=== PATIENT | female | born 1980 | race Caucasian/White ===

== ENCOUNTER 2022-09-14 00:23 | Inpatient (IN) | payer BC, OTHER ==
[~2022-09-14] VITALS: Ht 160 cm; Wt 70.3 kg
--- NOTE | 2022-09-14 00:25 | NUR ---
Pt is noted in bed alert, responsive as she is brought in by family due to S/P Fall with Right Arm pain after a Seizure hours ago at home . Pt care continue as awaits MD orders.
[2022-09-14] MEDS ORDERED: ONDANSETRON 4 MG/2 ML VIAL IV ONE (01:00)
[2022-09-14] MEDS ORDERED: MORPHINE SULFATE 2 MG/1 ML DISP.SYRIN IV ONE (01:00)
[2022-09-14] MEDS ORDERED: IV NORMAL SALINE 1000 ML BAG IV ONE (01:00)
--- NOTE | 2022-09-14 01:09 | NUR ---
Pt care continue as DR. MÁRQUEZ spoke with DR. SHETH and DR. SINGH as Pt will be admitted.
[2022-09-14] MEDS ORDERED: ACETAMINOPHEN 325 MG TABLET PO PRN (01:15)
[2022-09-14] MEDS ORDERED: ONDANSETRON 4 MG/2 ML VIAL IV PRN (01:15)
[2022-09-14 01:42] LABS: HEMATOCRIT 36.6 % (31.2-41.9); MEAN CORPUSCULAR HEMOGLOBIN 30.5 uug (24.7-32.8); MEAN CORPUSCULAR VOLUME 93.7 fL (75.5-95.3); PLATELET COUNT (AUTO) 328 K/uL (179-408)
[2022-09-14] MEDS ORDERED: MORPHINE SULFATE 4 MG/1 ML DISP.SYRIN ONE (01:43)
[2022-09-14 01:49] LABS: LYMPHOCYTES % (MANUAL) 25 % (20-40)
[2022-09-14 01:50] LABS: BAND % (MANUAL) 3 % (0-10); MONOCYTES % (MANUAL) 20 % (2-10); NEUTROPHILS % (MANUAL) 42 % (42-75)
[2022-09-14 02:00] LABS: ALANINE AMINOTRANSFERASE 22 U/L (14-59); ALKALINE PHOSPHATASE 70 U/L (50-136); ASPARTATE AMINOTRANSFERASE 24 U/L (15-37); BILIRUBIN,DIRECT < 0.1 mg/dL (0.0-0.2); BILIRUBIN,TOTAL 0.3 mg/dL (0.2-1.0); CARBON DIOXIDE 25 mmol/L (21-32); CHLORIDE 102 mmol/L (98-107); CREATININE 0.9 mg/dL (0.6-1.3); POTASSIUM 3.8 mmol/L (3.5-5.1); TOTAL PROTEIN, SERUM 9.2 g/dL (6.4-8.2); UREA NITROGEN, BLOOD 11 mg/dL (7-18)
--- NOTE | 2022-09-14 02:03 | NUR ---
Pt care continue as she is been mediacted with Morhine 4mg IVP , Zofran 4mg IVP and 0.9NS IVF [id number] given as ordered.
[2022-09-14] MEDS ORDERED: CANN100S PO (02:04)
[2022-09-14] MEDS ORDERED: LAMO200T10 PO (02:05)
[2022-09-14] MEDS ORDERED: CLOB10TA3 PO (02:06)
--- NOTE | 2022-09-14 02:13 | NUR ---
Pt is been admitted and has a MED/SURG BED Room [address] ALEX Bliss and DR. Florian. Pt care continue.
[2022-09-14] MEDS ORDERED: CENO200T PO (02:18)
--- NOTE | 2022-09-14 02:34 | NUR ---
Report Received from Diamond Huizar, patient will be placed in room 302.
--- NOTE | 2022-09-14 02:34 | NUR ---
Pt care continue as report given to the the 3rd Floor MELI Colindres as is going to Room 302.
[2022-09-14 03:22] VITALS: BP 99/62; TEMP 98.7; O2SAT 100
--- NOTE | 2022-09-14 03:22 | NUR ---
Pt is noted off the unit to the 3RD Floor Room 302. Pt care continue.
--- NOTE | 2022-09-14 03:22 | NUR ---
Patient Arrived from ER via gurney, patient stating she is in severe pain. Will continue plan of care and continue to monitor.
[2022-09-14] MEDS: IV NS 1000 ML 1,000 ML IV SCH ×3 (04:42→19:48)
[2022-09-14] MEDS: MORPHINE SULFATE 2 MG/1 ML DISP.SYRIN IVP PRN ×2 (04:42→16:13)
--- NOTE | 2022-09-14 06:54 | NUR ---
Patient rested well in between care. Mother stayed with patient throughout the night and signed extended stay form. Alert and Oriented x3-4. IV site patent and intact. All needs attended too. Hourly rounding done
--- NOTE | 2022-09-14 07:30 | NUR ---
MORNING REPORT: 1) MAINTAINING A SAFE ENVIRONMENT: AO x4, mother stayed overnight since admission in the room. Patient is Jehov[employer] Witness. 2) COMMUNICATION:Speaks good Bulgarian, however, mum speaks for daughter. 3) BREATHING:On RA - Saturating in the high 90s. 4) EATING & DRINKING: Patient NPO - in view of probably OR later today. 5) ELIMINATION: Mobilizing to and from bathroom with standby assist. 6) HYGIENE: Needs assistance of one due to fractured right humerus. 7) BODY TEMPERATURE: Able to control body temperature. 8) MOBILITY: BRP with one assist. 9) PLAN: (i) Pain management (ii) NPO except meds (iii) Safety
[2022-09-14] MEDS: DOCUSATE SODIUM 100 MG CAPSULE PO SCH ×2 (08:26→17:04)
[2022-09-14] MEDS ORDERED: LORAZEPAM 2 MG/1 ML VIAL IV PRN (08:45)
[2022-09-14] MEDS: LAMOTRIGINE 200 MG TABLET PO SCH ×2 (09:47→20:20)
[2022-09-14] MEDS ORDERED: IV NORMAL SALINE 500 ML BAG IV ONE (10:00)
[2022-09-14 10:30] VITALS: BP 92/41; TEMP 97.8; O2SAT 97
--- NOTE | 2022-09-14 10:35 | NUR ---
VITALS POST IV BOLUS: 1) Vitals: BP: - 92/41, P59, TEMP 97.8, R: - 20, & Oxygen Sats: - 97%
--- NOTE | 2022-09-14 11:15 | NUR ---
DRUG URINE SPECIMEN ORDERED: - Patient provided with urine pot - will advise RN when sample is available.
[2022-09-14] MEDS ORDERED: FENTANYL CITRATE 100 MCG/2 ML AMPUL IV ONE (11:30)
[2022-09-14] MEDS ORDERED: IV NORMAL SALINE 500 ML IV ONE (11:30)
[2022-09-14 11:33] VITALS: BP 94/54; TEMP 97.8; O2SAT 96
[2022-09-14] MEDS ORDERED: CITA20TA16 PO (12:09)
--- NOTE | 2022-09-14 12:37 | NUR ---
PAIN MANAGEMENT: 1) Fentanyl administered as prescribed - awaiting effect. 2) Another 500mls bolus iv 0.9% administered as prescribed
--- NOTE | 2022-09-14 15:30 | NUR ---
FAMILY: 1) Not happy that patient hasn't been seen by MD Aguilera. 2) Family called PCP and asked them to call MD Aguilera's office. 3) PCP traveling secretary told family that MD Aguilera is a sport surgeon and not orthopedic surgeon. 4) Called DELIVERY TABLE OPERATOR and advised patient that MD Aguilera will come and review patient later.
[2022-09-14 16:00] VITALS: BP 111/72; TEMP 98.2; O2SAT 96
--- NOTE | 2022-09-14 16:05 | NUR ---
MD AGUILERA: 1) Received a message from MD Aguilera to send x-ray report. 2) MD in [place] with a Hip patient, will review patient when done. 3) Plan would be OR for humerus surgery maybe tomorrow. 4) Family updated.
--- NOTE | 2022-09-14 16:30 | NUR ---
PAIN MANAGEMENT: 1) BP 113/68, P68. 2) Morphine iv administered for pain. 3) Zofran iv Administered for nausea.
[2022-09-14 16:48] LABS: *BILIRUBIN,URIN NEGATIVE (NEGATIVE); *BLOOD, URINE NEGATIVE (NEGATIVE); *CLARITY,URINE CLEAR (CLEAR); *COLOR,URINE YELLOW (YELLOW); *KETONES,URINE NEGATIVE (NEGATIVE); *UROBILINOGEN,URINE 0.2 E.U./dl (NORMAL); LEUKOCYTE ESTERASE ,URINE NEGATIVE (NEGATIVE); NITRITE, URINE NEGATIVE (NEGATIVE); UGLUCOSE NEGATIVE (NEGATIVE)
[2022-09-14 17:05] LABS: *AMPHETAMINE, URINE NEGATIVE (NEGATIVE); *CANNABINOID, URINE NEGATIVE (NEGATIVE); *COCCAINE, URINE NEGATIVE (NEGATIVE); *PHENCYCLIDINE SCREEN,URINE NEGATIVE (NEGATIVE)
--- NOTE | 2022-09-14 17:05 | NUR ---
URINE FOR DRUG SCREENING:- Sent to lab for analysis
--- NOTE | 2022-09-14 18:30 | NUR ---
END OF DAY SHIFT REPORT: 1) Patient seem comfortable and no sign of discomfort or distress observed. 2) No further complaints during the rest of the day. 3) Will endorse care accordingly to night staff.
[2022-09-14] MEDS ORDERED: HYDROMORPHONE 1 MG/1 ML DISP.SYRIN IV PRN (19:30)
[2022-09-14] MEDS ORDERED: EPIDIOLEX 100 MG/ML PO SCH (21:00)
[2022-09-14] MEDS ORDERED: CLOBAZAM 10 MG TABLET PO SCH (21:00)
[2022-09-14] MEDS ORDERED: XCOPRI 200 MG PO SCH (21:00)
[2022-09-14] MEDS ORDERED: XCOPRI 100 MG PO SCH (21:00)
[2022-09-14] MEDS ORDERED: CLOBAZAM 5 MG PO SCH (21:00)
--- NOTE | 2022-09-14 22:19 | NUR ---
Pt is discharged against medical advice; pt is educated with risk of leaving AMA; pt's IVHL removed; pt is accompanied by family and assisted by staff by wheelchair and escorted to their car; Gabe Mercedes NP and Dr Aguilera are aware. Corporate Administrator Cassia sahu aware.
[2022-09-15] MEDS ORDERED: HEPARIN SODIUM,PORCINE 5,000 UNITS/ML VIAL SQ SCH (09:00)
[2022-09-15] MEDS ORDERED: CITALOPRAM 20 MG TABLET PO SCH (09:00)
== END 2022-09-14 22:00 | disposition left against medical advice (07) | DRG 563 ==
LOC: ER 00:31 → MEDSURG3 01:00 → TELE3 02:53 → MEDSURG3 11:24
PROVIDERS: ADMIT Nurse Practitioner Family; ATTEND Nurse Practitioner Family
DX: S42.351A Displaced comminuted fracture of shaft of humerus, right arm, initial encounter for closed fracture (principal); G40.909 Epilepsy, unspecified, not intractable, without status epilepticus; D72.829 Elevated white blood cell count, unspecified; Z20.822 Contact with and (suspected) exposure to COVID-19; W19.XXXA Unspecified fall, initial encounter; Y93.9 Activity, unspecified; Y92.009 Unspecified place in unspecified non-institutional (private) residence as the place of occurrence of the external cause; Z86.19 Personal history of other infectious and parasitic diseases
CPT/HCPCS: 36415; 70030-TC; 71045; 73060; 85025; 85730; 93005; A4663; G0378; J1170; J2270; J2405; J3010; J7040